=== PATIENT | female | born 1990 | race African-American/Black ===

== ENCOUNTER 2023-06-05 19:25 | Emergency (ER) | payer BC, SELFPAY ==
[2023-06-05 19:40] VITALS: BP 130/87; PULSE 92; RESP 16; TEMP 37.3; O2SAT 98
--- NOTE | 2023-06-05 20:02 | ED.GENADULT ---
HPI - General Adult General Chief complaint: Upper Respiratory Infection Stated complaint: CASTRO,chest congestion,bodyaches Source: patient Mode of arrival: ambulatory Limitations: no limitations History of Present Illness HPI narrative: Patient presents for evaluation of respiratory symptoms for last 2 days. She reports some sinus congestion, nonproductive cough and mild shortness of breath. Shortness of breath has essentially resolved. She also experienced some chills, diarrhea and body aches. She denies any fever, nausea, vomiting, or sore throat. She states that her current symptoms are consistent with those she previously experienced with COVID, although current symptoms are not as severe. She took some NyQuil for symptoms. She does not smoke. She is on methotrexate for RA and lupus. Her cough is markedly improved. She came in because she is planning on spending time with an elderly family member and wanted to make sure that she did not expose that family member to any respiratory infections. She is currently on prednisone for foot swelling. Related Data Home Medications Medication Instructions Recorded Confirmed cyclobenzaprine 10 mg tablet 10 mg PO TID 01/26/19 06/05/23 methotrexate sodium 25 mg/mL 25 mg IM WEEKLY 06/05/23 06/05/23 injection solution pantoprazole 40 mg tablet,delayed 40 mg PO DAILY 06/05/23 06/05/23 release Allergies Allergy/AdvReac Type Severity Reaction Status Date / Time celecoxib Allergy Unknown Rash Verified 06/05/23 19:30 Penicillins Allergy Unknown Rash Verified 06/05/23 19:30 Review of Systems Review of Systems: CONSTITUTIONAL: Reports chills recently. Denies fever. EYES: Denies visual changes, redness, or discharge. ENT: Reports recent sinus congestion. Denies sore throat. CARDIOVASCULAR: Denies chest pain, palpitations, or edema. RESPIRATORY: Reports recent cough and mild shortness of breath, both markedly improved. GASTROINTESTINAL: Reports recent diarrhea.Denies abdominal pain, nausea, vomiting GENITOURINARY: Denies dysuria or hematuria. SKIN: Denies rash or itching. MUSCULOSKELETAL: Reports generalized body aches. NEUROLOGIC: Denies headache, numbness, dizziness, or weakness. PSYCHIATRIC: Denies anxiety or depression. [facility] Past Medical History Medical History Anemia Anxiety Arthritis Depression Fibromyalgia, primary Head ache Rheumatoid arthritis with rheumatoid factor of multiple sites without organ or systems involvement Surgical History Surgical History Hx of colonoscopy Family History Family History Grandparent Hypertension Mother Hypertension Social History Social History Smoking status: Never smoker Alcohol intake: current Gender identity (if verbalized by the patient): Female Spiritual care concerns: No Exam Narrative: GENERAL: Well-appearing, well-nourished, and in no acute distress. HEAD: Normocephalic, atraumatic. EYES: PERRLA and EOMI. ENT: Nares clear, no rhinorrhea or epistaxis. Mucous membranes moist. Oropharynx without tonsillar hypertrophy exudate or other lesions. Bilateral TMs pearly rodriguez nonbulging NECK: Supple. No adenopathy or masses. No carotid bruits or JVD CHEST: Clear to auscultation. No respiratory distress. No wheezes rales or rhonchi HEART: Regular rate and rhythm. No murmur heard. Normal peripheral pulses. ABDOMEN: Soft, nontender, nondistended, normal active bowel sounds. EXTREMITIES: Normal range of motion. No edema. SKIN: Warm, dry, no rash. NEURO: No focal deficits. Alert and oriented x3. PSYCH: Normal mood and affect. Course Course Emergency Course: This is a 32-year-old female who presented for evaluation of sick symptoms. COVID and
== END 2023-06-05 20:09 | disposition home or self-care (01) ==
PROVIDERS: Emergency Provider Nurse Practitioner
DX: B34.9 Viral infection, unspecified (principal); Z20.822 Contact with and (suspected) exposure to COVID-19; M19.90 Unspecified osteoarthritis, unspecified site; M79.7 Fibromyalgia; M05.79 Rheumatoid arthritis with rheumatoid factor of multiple sites without organ or systems involvement
CPT/HCPCS: 87426; 87804; 99213; G0463